=== PATIENT | female | born 1980 | race Caucasian/White ===

== ENCOUNTER 2017-07-17 11:20 | Inpatient (IN) | payer OTHER ==
[~2017-07-17] VITALS: Ht 175.3 cm; Wt 104.3 kg
[2017-07-17 11:26] VITALS: BP 128/69
[2017-07-17] MEDS ORDERED: PEPCID AC10 MG PO (11:54)
[2017-07-17] MEDS ORDERED: ZOLPIDEM TARTRA10 MG ORAL (11:54)
[2017-07-17] MEDS ORDERED: XANAX0.5 MG ORAL (11:54)
[2017-07-17] MEDS ORDERED: XANAX0.25 MG ORAL (11:54)
[2017-07-17] MEDS ORDERED: METOPROLOL TART50 M1 ORAL (11:54)
[2017-07-17] MEDS ORDERED: FLUOXETINE HCL20 MG ORAL (11:54)
[2017-07-17] MEDS ORDERED: RISPERDAL0.5 MG ORAL (11:54)
[2017-07-17] MEDS ORDERED: PREDNISONE20 MG ORAL (11:54)
[2017-07-17] MEDS ORDERED: BUPROPION XL150 MG ORAL (11:54)
[2017-07-17 12:20] LABS: BASOPHILS % (AUTO) 0.7 % (0.0-2.0); EOSINOPHILS % (AUTO) 0.4 % (0.0-3.0); HEMATOCRIT 36.7 % (37.0-47.0); LYMPHOCYTES % (AUTO) 26.1 % (20.0-45.0); MEAN CORPUSCULAR VOLUME 82 FL (80-99); MONOCYTES % (AUTO) 6.4 % (1.0-10.0); NEUTROPHILS % (AUTO) 66.5 % (45.0-75.0); PLATELET COUNT 304 K/UL (150-450); RED BLOOD COUNT 4.48 M/UL (4.20-5.40); RED CELL DISTRIBUTION WIDTH 13.9 % (11.6-14.8); WHITE BLOOD COUNT 12.1 K/UL (4.8-10.8)
--- NOTE | 2017-07-17 12:24 | Emergency Room Report ---
History of Present Illness General Chief Complaint: General Complaint Source: Patient Present Illness HPI 37-year-old female presenting with bilateral swelling of underarms. States it is in the way since age 17. Has had numerous flares. Here to have surgery for hidradenitis Allergies: Coded Allergies: LEVOFLOXACIN (Verified Allergy, Unknown, 07/17/17) Patient History Past Medical History: see triage record Past Surgical History: none Pertinent Family History: none Last Menstrual Period: Three weeks ago Now: No Reviewed Nursing Documentation: PMH: Agreed, PSxH: Agreed Nursing Documentation-PMH Hx Hypertension: Yes Review of Systems All Other Systems: negative except mentioned in HPI Physical Exam Vital Signs Date Time Temp Pulse Resp B/P (MAP) Pulse Ox O2 Delivery O2 Flow Rate FiO2 07/17/17 11:26 98.1 65 16 128/69 99 Room Air 98.1 Sp02 EP Interpretation: reviewed, normal General Appearance: normal inspection, well appearing, no apparent distress, alert, GCS 15, non-toxic Head: normocephalic, atraumatic Eyes: bilateral eye normal inspection, bilateral eye PERRL, bilateral eye EOMI ENT: normal ENT inspection, normal pharynx, normal voice, moist mucus membranes Neck: normal inspection, full range of motion, supple Respiratory: normal inspection, lungs clear, normal breath sounds, no respiratory distress, no retraction, no wheezing, speaking full sentences, chest symmetrical Cardiovascular #1: normal inspection, regular rate, rhythm, no edema, normal capillary refill Cardiovascular #2: 2+ radial (R), 2+ radial (L) Gastrointestinal: normal inspection, non tender, soft, non-distended, no guarding Musculoskeletal: other - underarms with numerous small lumps, TTP, mild erythema. no drainage Neurologic: normal inspection, alert, oriented x3, responsive, motor strength/ tone normal, sensory intact, normal gait, speech normal Psychiatric: normal inspection, judgement/insight normal, memory normal Skin: normal inspection, normal color, no rash, warm/dry, well hydrated, normal turgor Medical Decision Making Diagnostic Impression: Primary Impression: Hidradenitis suppurativa ER Course 37-year-old female with hidradenitis DDX: Hidradenitis suppurativa Plan: Obtain labs, ua, EKG ER course: Patient stable, offered pain medications but refusing at this time Disposition: Patient is to be admitted to [facility] D/W hospitalist Dr Garcia covering for Dr Charles (Dr Masterson will be surgeon) Please note that this Emergency Department Report was dictated using [employer] database administrator technology software, occasionally this can lead to erroneous entry secondary to interpretation by the dictation equipment. EKG Diagnostic Results EP Interpretation: Yes Rate: normal Rhythm: NSR ST Segments: No acute changes ASA given to patient: No Laboratory Tests Test 07/17/17 11:59 White Blood Count 12.1 K/UL (4.8-10.8) H Red Blood Count 4.48 M/UL (4.20-5.40) Hemoglobin 12.0 G/DL (12.0-16.0) Hematocrit 36.7 % (37.0-47.0) L Mean Corpuscular Volume 82 FL (80-99) Mean Corpuscular Hemoglobin 26.7 PG (27.0-31.0) L Mean Corpuscular Hemoglobin Concent 32.6 G/DL (32.0-36.0) Red Cell Distribution Width 13.9 % (11.6-14.8) Platelet Count 304 K/UL (150-450) Mean Platelet Volume 6.1 FL (6.5-10.1) L Neutrophils (%) (Auto) 66.5 % (45.0-75.0) Lymphocytes (%) (Auto) 26.1 % (20.0-45.0) Monocytes (%) (Auto) 6.4 % (1.0-10.0) Eosinophils (%) (Auto) 0.4 % (0.0-3.0) Basophils (%) (Auto) 0.7 % (0.0-2.0) Prothrombin Time 10.1 SEC (9.30-11.50) Prothrombin Time INR 1.0 (0.9-1.1) PTT 26 SEC (23-33) Urine Color Pale yellow Urine Appearance Turbid Urine pH 6 (4.5-8.0) Urine Specific Chandler 1.015 (1.005-1.035) Urine Protein Negative (NEGATIVE) Urine Glucose (UA) Negative (NEGATIVE) Urine Ketones Negative (NEGATIVE) Urine Occult Blood Negative (NEGATIVE) Urine Nitrite Negative (NEGATIVE) Urine Bilirubin Negative (NEGATIVE) Urine Urobilinogen Normal MG/DL (0.0-1.0) Urine Leukocyte Esterase 2+ (NEGATIVE) H Urine RBC 2-4 /HPF (0 - 2) H Urine WBC 5-10 /HPF (0 - 2) H Urine Squamous Epithelial Cells Many /LPF (NONE/OCC) H Urine Bacteria Few /HPF (NONE) Urine HCG, Qualitative Negative Sodium Level 139 MMOL/L (136-145) Potassium Level 3.5 MMOL/L (3.5-5.1) Chloride Level 103 MMOL/L (98-107) Carbon Dioxide Level 29 MMOL/L (21-32) Anion Gap 7 mmol/L (5-15) Blood Urea Nitrogen 13 mg/dL (7-18) Creatinine 1.0 MG/DL (0.55-1.30) Estimate Glomerular Filtration Rate > 60 mL/min (>60) Glucose Level 79 MG/DL (74-106) Calcium Level 8.7 MG/DL (8.5-10.1) Total Bilirubin 0.3 MG/DL (0.2-1.0) Aspartate Amino Transferase (AST) 11 U/L (15-37) L Alanine Aminotransferase (ALT) 15 U/L (12-78) Alkaline Phosphatase 54 U/L (46-116) Total Protein 7.4 G/DL (6.4-8.2) Albumin 3.5 G/DL (3.4-5.0) Globulin 3.9 g/dL Albumin/Globulin Ratio 0.9 (1.0-2.7) L Last Vital Signs Date Time Temp Pulse Resp B/P (MAP) Pulse Ox O2 Delivery O2 Flow Rate FiO2 07/17/17 11:26 98.6 65 16 128/69 99 Room Air 98.6 Disposition: ADMITTED INPATIENT Condition: Serious Referrals: BARB MASTERSON (PCP) Debra Boyer M.D. Jul 17, 2017 12:24
[2017-07-17 12:30] LABS: ANION GAP 7 mmol/L (5-15); BLOOD UREA NITROGEN 13 mg/dL (7-18); CALCIUM 8.7 MG/DL (8.5-10.1); CARBON DIOXIDE 29 MMOL/L (21-32); CHLORIDE 103 MMOL/L (98-107); POTASSIUM 3.5 MMOL/L (3.5-5.1); SODIUM 139 MMOL/L (136-145)
[2017-07-17] MEDS ORDERED: Mylanta II UD 30ml ORAL PRN (12:30)
[2017-07-17] MEDS ORDERED: Morphine Sulfate 4mg/ml Inj IVP PRN ×2 (12:30)
[2017-07-17] MEDS ORDERED: Acetaminophen 650 MG SUPP RECTAL PRN ×2 (12:30)
[2017-07-17] MEDS ORDERED: Miralax 17gm pkt ORAL PRN (12:30)
[2017-07-17] MEDS ORDERED: Zolpidem 5mg tab ORAL PRN ×2 (12:30→16:45)
[2017-07-17 12:33] LABS: APPEARANCE,URINE TURBID; BILIRUBIN, URINE NEGATIVE (NEGATIVE); COLOR,URINE PALE YELLOW; GLUCOSE, URINE (UA) NEGATIVE (NEGATIVE); KETONES,URINE NEGATIVE (NEGATIVE); LEUKOCYTE ESTERASE ,URINE 2+ (NEGATIVE); NITRITE,URINE NEGATIVE (NEGATIVE); PH,URINE 6 (4.5-8.0); PROTEIN,URINE NEGATIVE (NEGATIVE); UROBILINOGEN,URINE NORMAL MG/DL (0.0-1.0)
[2017-07-17 12:34] LABS: ALANINE AMINOTRANSFERASE 15 U/L (12-78); ALBUMIN 3.5 G/DL (3.4-5.0); ALBUMIN/GLOBULIN RATIO 0.9 (1.0-2.7); ALKALINE PHOSPHATASE 54 U/L (46-116); ASPARTATE AMINO TRANSFERASE 11 U/L (15-37); BILIRUBIN,TOTAL 0.3 MG/DL (0.2-1.0)
[2017-07-17 16:00] VITALS: BP 118/63
--- NOTE | 2017-07-17 16:41 | History and Physical ---
History of Present Illness General Date patient seen: Jul 17, 2017 Time patient seen: 16:41 Reason for Hospitalization: abscesses Present Illness HPI 37y/o female with pmh of hidradenitis suppurative, HTN, depression, anxiety who presents with b/l axillary swelling/pain/redness/drainage. Pt states worsening symptoms for the past few weeks. She notes purulent drainage L>R axilla. C/o subjective fevers/chills. Denies n/v, d/c, chest pain, SOB, abd pain. Pt states has tried PO antibiotics with much improvement. At baseline pt able to ambulate severe blocks and climb at least a flight of stairs w/o symptoms. Allergies: Coded Allergies: LEVOFLOXACIN (Verified Allergy, Unknown, 07/17/17) Medication History Scheduled Alprazolam* (Xanax*), 0.25 MG ORAL THREE TIMES A DAY, (Reported) Bupropion Xl* (Bupropion Xl*), 300 MG ORAL Q24H, (Reported) Fluoxetine Hcl* (Fluoxetine Hcl*), 20 MG ORAL DAILY, (Reported) Metoprolol Tartrate* (Metoprolol Tartrate*), 50 MG ORAL EVERY 12 HOURS, ( Reported) Prednisone* (Prednisone*), 20 MG ORAL DAILY, (Reported) Risperidone* (Risperdal*), 0.5 MG ORAL BID, (Reported) Scheduled PRN Alprazolam* (Xanax*), 0.5 MG ORAL TID PRN for PRN Agitation/Anxiety, (Reported) Zolpidem Tartrate* (Zolpidem Tartrate*), 10 MG ORAL BEDTIME PRN for Insomnia, ( Reported) Miscellaneous Medications Famotidine (Pepcid Ac), 10 MG PO, (Reported) Patient History History Provided By: Patient, Medical Record, PMD Healthcare decision maker Resuscitation status Advanced Directive on File Past Medical/Surgical History Past Medical/Surgical History: (1) HTN (hypertension) (2) Depression (3) Anxiety Social History Social History: (1) Lives with family (2) Denies tobacco, alcohol. Occasional marijuana use Review of Systems Constitutional: Reports: fever, malaise, weakness Eye: Reports: no symptoms ENT: Reports: no symptoms Respiratory: Reports: no symptoms Cardiovascular: Reports: no symptoms Gastrointestinal: Reports: no symptoms Genitourinary: Reports: no symptoms Musculoskeletal: Reports: no symptoms Skin: Reports: lesions Neurological: Reports: no symptoms Endocrine: Reports: no symptoms Hematologic/Lymphatic: Reports: no symptoms Physical Exam Physical Exam Narrative General: alert, cooperative, no distress, appears stated age Head: normocephalic, without obvious abnormality, atraumatic Eyes: conjunctivae/corneas clear. PERRL, EOM's intact Throat: lips, mucosa, and tongue normal. MMM Neck: supple, symmetrical, trachea midline, and no JVD Lungs: clear to auscultation bilaterally Heart: regular rate and rhythm, S1, S2 normal, no murmur, click, rub or gallop Abdomen: soft, non-tender, non-distended, bowel sounds normal; no masses or organomegaly Extremities: extremities normal, atraumatic, no cyanosis or edema Pulses: 2+ and symmetric Skin: skin color, texture, turgor normal; b/l axilla w/ erythema/edema/warm/ fluctuance, no sig purulent drainage noted Neurologic: grossly normal, no focal deficits Last 24 Hour Vital Signs Date Time Temp Pulse Resp B/P (MAP) Pulse Ox O2 Delivery O2 Flow Rate FiO2 07/17/17 14:15 97.5 07/17/17 12:55 97.5 61 18 111/75 100 Room Air 07/17/17 11:26 98.6 65 16 128/69 99 Room Air 98.6 07/17/17 11:26 98.1 65 16 128/69 99 Room Air 98.1 Laboratory Tests Test 07/17/17 11:59 White Blood Count 12.1 K/UL (4.8-10.8) H Red Blood Count 4.48 M/UL (4.20-5.40) Hemoglobin 12.0 G/DL (12.0-16.0) Hematocrit 36.7 % (37.0-47.0) L Mean Corpuscular Volume 82 FL (80-99) Mean Corpuscular Hemoglobin 26.7 PG (27.0-31.0) L Mean Corpuscular Hemoglobin Concent 32.6 G/DL (32.0-36.0) Red Cell Distribution Width 13.9 % (11.6-14.8) Platelet Count 304 K/UL (150-450) Mean Platelet Volume 6.1 FL (6.5-10.1) L Neutrophils (%) (Auto) 66.5 % (45.0-75.0) Lymphocytes (%) (Auto) 26.1 % (20.0-45.0) Monocytes (%) (Auto) 6.4 % (1.0-10.0) Eosinophils (%) (Auto) 0.4 % (0.0-3.0) Basophils (%) (Auto) 0.7 % (0.0-2.0) Prothrombin Time 10.1 SEC (9.30-11.50) Prothromb Time International Ratio 1.0 (0.9-1.1) Activated Partial Thromboplast Time 26 SEC (23-33) Urine Color Pale yellow Urine Appearance Turbid Urine pH 6 (4.5-8.0) Urine Specific Pierre 1.015 (1.005-1.035) Urine Protein Negative (NEGATIVE) Urine Glucose (UA) Negative (NEGATIVE) Urine Ketones Negative (NEGATIVE) Urine Occult Blood Negative (NEGATIVE) Urine Nitrite Negative (NEGATIVE) Urine Bilirubin Negative (NEGATIVE) Urine Urobilinogen Normal MG/DL (0.0-1.0) Urine Leukocyte Esterase 2+ (NEGATIVE) H Urine RBC 2-4 /HPF (0 - 2) H Urine WBC 5-10 /HPF (0 - 2) H Urine Squamous Epithelial Cells Many /LPF (NONE/OCC) H Urine Bacteria Few /HPF (NONE) Urine HCG, Qualitative Negative Sodium Level 139 MMOL/L (136-145) Potassium Level 3.5 MMOL/L (3.5-5.1) Chloride Level 103 MMOL/L (98-107) Carbon Dioxide Level 29 MMOL/L (21-32) Anion Gap 7 mmol/L (5-15) Blood Urea Nitrogen 13 mg/dL (7-18) Creatinine 1.0 MG/DL (0.55-1.30) Estimat Glomerular Filtration Rate > 60 mL/min (>60) Glucose Level 79 MG/DL (74-106) Calcium Level 8.7 MG/DL (8.5-10.1) Total Bilirubin 0.3 MG/DL (0.2-1.0) Aspartate Amino Transf (AST/SGOT) 11 U/L (15-37) L Alanine Aminotransferase (ALT/SGPT) 15 U/L (12-78) Alkaline Phosphatase 54 U/L (46-116) Total Protein 7.4 G/DL (6.4-8.2) Albumin 3.5 G/DL (3.4-5.0) Globulin 3.9 g/dL Albumin/Globulin Ratio 0.9 (1.0-2.7) L Height (Feet): 5 Height (Inches): 9.00 Weight (Pounds): 230 Medications Current Medications Medications (Trade) Dose Ordered Sig/Mariaelena Route PRN Reason Start Time Stop Time Status Last Admin Dose Admin Acetaminophen (Tylenol) 650 mg Q4H PRN ORAL Mild Pain (Scale 1-3)/FEVER 07/17/17 12:30 08/16/17 12:29 Acetaminophen (Tylenol) 650 mg Q4H PRN RECTAL Mild Pain (Scale 1-3)/FEVER 07/17/17 12:30 08/16/17 12:29 Al Hydroxide/Mg Hydroxide (Mylanta II) 30 ml Q6H PRN ORAL dyspepsia 07/17/17 12:30 08/16/17 12:29 Bisacodyl (Dulcolax) 10 mg HSPRN PRN RECTAL Constipation 07/17/17 12:30 08/16/17 12:29 Dextrose (Dextrose 50%) STAT PRN IV Hypoglycemia 07/17/17 12:30 08/16/17 12:29 Dextrose/Sodium Chloride 1,000 ml @ 75 mls/hr [id number] IV 07/18/17 06:00 08/17/17 05:59 Diphenhydramine HCl (Benadryl) 25 mg Q6H PRN ORAL Itching/Pruritis 07/17/17 12:30 08/16/17 12:29 Docusate Sodium (Colace) 100 mg EVERY 12 HOURS ORAL 07/17/17 21:00 08/16/17 20:59 Morphine Sulfate (Morphine Sulfate) 2 mg Q4H PRN IVP Moderate Pain (Pain Scale 4-6) 07/17/17 12:30 07/24/17 12:29 07/17/17 14:15 Morphine Sulfate (Morphine Sulfate) 4 mg Q4H PRN IVP Severe Pain (Pain Scale 7-10) 07/17/17 12:30 07/24/17 12:29 Ondansetron HCl (Zofran) 4 mg Q6H PRN IVP Nausea & Vomiting 2/13/18 12:30 08/16/17 12:29 Polyethylene Glycol (Miralax) 17 gm HSPRN PRN ORAL Constipation 07/17/17 12:30 08/16/17 12:29 Zolpidem Tartrate (Ambien) 5 mg HSPRN PRN ORAL Insomnia 07/17/17 12:30 07/24/17 12:29 Assessment/Plan Problem List: (1) Abscesses of both axillae ICD Codes: L02.411 - Cutaneous abscess of right axilla; L02.412 - Cutaneous abscess of left axilla SNOMED: 58421174 (2) Hidradenitis suppurativa ICD Codes: L73.2 - Hidradenitis suppurativa SNOMED: 08192153 (3) HTN (hypertension) ICD Codes: I10 - Essential (primary) hypertension SNOMED: 06168274 (4) Depression ICD Codes: F32.9 - Major depressive disorder, single episode, unspecified SNOMED: 55172863 (5) Anxiety ICD Codes: F41.9 - Anxiety disorder, unspecified SNOMED: 66501993 Status: stable Assessment/Plan Admit in Plastic surgery consulted Check blood cultures x 2 Empiric IV ancef mIVFs Pain control, bowel regimen Supportive care Cont home meds including MTP, welbutrin, prozac, risperidone, xanax PRN, prilosec If patient is required to have surgery, based on the patient's medical history, and other available ancillary data, the patient is a LOW risk for an INTERMEDIATE risk procedure. Per the most recent ACC/AHA guidelines, the patient does not need any further cardiopulmonary testing prior to the procedure and there do not appear to be any clear medical contraindications to proceeding with the proposed procedure. METs>4 FULL CODE D/w pt, RN, SW/CM, surgery regarding mgmt and dispo Jaciel Winter M.D. Jul 17, 2017 16:41
[2017-07-17] MEDS ORDERED: ceFAZolin 1gm/50ml Premix 50 ML IV SCH (16:45)
[2017-07-17] MEDS ORDERED: ALPRAZolam 0.5mg tab ORAL PRN (16:45)
[2017-07-17] MEDS: ceFAZolin sod 1 GM in NS 55 ML IVPB SCH (18:24)
[2017-07-17 20:14] VITALS: BP 127/67
[2017-07-17] MEDS: Docusate 100mg cap ORAL SCH (21:03)
[2017-07-17] MEDS: Metoprolol Tartrate 50mg tab ORAL SCH (21:03)
[2017-07-18] VITALS (15 sets, daily range): BP systolic 95–152; BP diastolic 48–76
[2017-07-18] MEDS: ceFAZolin sod 1 GM in NS 55 ML IVPB SCH ×3 (02:00→17:42)
[2017-07-18] MEDS: D5 1/2NS 1,000 ML IV SCH ×2 (06:05→20:00)
[2017-07-18] MEDS ORDERED: TransDerm Scop 1mg/72HR Patch TDERMAL ONE (07:49)
--- NOTE | 2017-07-18 08:20 | Anethesia Preoperative Eval ---
Anesthesia Pre-op PMH/ROS General Date of Evaluation: Jul 18, 2017 Time of Evaluation: 08:17 Anesthesiologist: Tatiana ASA Score: ASA 2 Mallampati Score Class I : Soft palate, uvula, fauces, pillars visible Class II: Soft palate, uvula, fauces visible Class III: Soft palate, base of uvula visible Class IV: Only hard plate visible Mallampati Classification: Class II Surgeon: Tavares Diagnosis: Bilateral axillary hydradenitis Surgical Procedure: Excision of bilateral axillary HS Anesthesia History: none Family History: no anesthesia problems Allergies: Coded Allergies: LEVOFLOXACIN (Verified Allergy, Unknown, 07/17/17) Medications: see eMAR Past Medical History Cardiovascular: Reports: HTN - stable on meds, Denies: CAD, VA, valve dz, arrhythmia, other Pulmonary: Denies: asthma, COPD, GWEN, other Gastrointestinal/Genitourinary: Reports: GERD - mild, Denies: CRI, ESRD, other Neurologic/Psychiatric: Reports: depression/anxiety, Denies: dementia, CVA, TIA, other Endocrine: Denies: DM, hypothyroidism, steroids, other HEENT: Denies: cataract (L), cataract (R), glaucoma, CHILKAT (L), CHILKAT (R), other Hematology/Immune: Denies: anemia, DVT, bleeding disorder, other Musculoskeletal/Integumentary: Denies: OA, RA, DJD, DDD, edema, other Other: obesity PMH Narrative: as above PSxH Narrative: excision of pilonidal cyst Anesthesia Pre-op Phys. Exam Physician Exam Last Vital Signs Date Time Temp Pulse Resp B/P (MAP) Pulse Ox O2 Delivery O2 Flow Rate FiO2 07/18/17 04:05 Room Air 07/18/17 04:04 97.7 56 17 98/53 97 Constitutional: NAD Neurologic: CN 2-12 intact Cardiovascular: RRR, no M/R/G Respiratory: CTA Gastrointestinal: S/NT/ND Airway Exam Mallampati Score: Class II MO: full Neck: flexible ROM: full Teeth: intact Dentures: no upper, no lower Anesthesia Pre-op A/P Labs Hematology Test 07/17/17 11:59 White Blood Count 12.1 K/UL (4.8-10.8) H Red Blood Count 4.48 M/UL (4.20-5.40) Hemoglobin 12.0 G/DL (12.0-16.0) Hematocrit 36.7 % (37.0-47.0) L Mean Corpuscular Volume 82 FL (80-99) Mean Corpuscular Hemoglobin 26.7 PG (27.0-31.0) L Mean Corpuscular Hemoglobin Concent 32.6 G/DL (32.0-36.0) Red Cell Distribution Width 13.9 % (11.6-14.8) Platelet Count 304 K/UL (150-450) Mean Platelet Volume 6.1 FL (6.5-10.1) L Neutrophils (%) (Auto) 66.5 % (45.0-75.0) Lymphocytes (%) (Auto) 26.1 % (20.0-45.0) Monocytes (%) (Auto) 6.4 % (1.0-10.0) Eosinophils (%) (Auto) 0.4 % (0.0-3.0) Basophils (%) (Auto) 0.7 % (0.0-2.0) Coagulation Test 07/17/17 11:59 Prothrombin Time 10.1 SEC (9.30-11.50) Prothromb Time International Ratio 1.0 (0.9-1.1) Activated Partial Thromboplast Time 26 SEC (23-33) Chemistry Test 07/17/17 11:59 Sodium Level 139 MMOL/L (136-145) Potassium Level 3.5 MMOL/L (3.5-5.1) Chloride Level 103 MMOL/L (98-107) Carbon Dioxide Level 29 MMOL/L (21-32) Anion Gap 7 mmol/L (5-15) Blood Urea Nitrogen 13 mg/dL (7-18) Creatinine 1.0 MG/DL (0.55-1.30) Estimat Glomerular Filtration Rate > 60 mL/min (>60) Glucose Level 79 MG/DL (74-106) Calcium Level 8.7 MG/DL (8.5-10.1) Total Bilirubin 0.3 MG/DL (0.2-1.0) Aspartate Amino Transf (AST/SGOT) 11 U/L (15-37) L Alanine Aminotransferase (ALT/SGPT) 15 U/L (12-78) Alkaline Phosphatase 54 U/L (46-116) Total Protein 7.4 G/DL (6.4-8.2) Albumin 3.5 G/DL (3.4-5.0) Globulin 3.9 g/dL Albumin/Globulin Ratio 0.9 (1.0-2.7) L Urine Test Test 07/17/17 11:59 Urine HCG, Qualitative Negative Risk Assessment & Plan Assessment: ASA 2 Plan: GA with ETT PONV prevention Status Change Before Surgery: No Pre-Antibiotics Drug: as scheduled ADALBERTO THOMAS M.D. Jul 18, 2017 08:20
[2017-07-18] MEDS: Docusate 100mg cap ORAL SCH ×2 (08:35→20:46)
[2017-07-18] MEDS: Metoprolol Tartrate 50mg tab ORAL SCH ×2 (08:36→20:51)
[2017-07-18] MEDS: BuPROPion XL 150mg tab ORAL SCH (08:36)
[2017-07-18] MEDS ORDERED: NeoSporin Gu Irrig 1ml Amp IRRIG ONE (08:57)
[2017-07-18] MEDS ORDERED: Lidocaine 1% 10mg/ml/EPI 0.01mg/ml 50ml INJ ONE (08:57)
[2017-07-18] MEDS ORDERED: Bacitracin 50000 Units Vial ONE (08:57)
--- NOTE | 2017-07-18 09:23 | Pre-Procedure Note/Attestation ---
Pre-Procedure Note/Attestation Complete Prior to Procedure Planned Procedure: bilateral Procedure Narrative: Bilateral axillary debridement and flap elevation Attestation I attest that I discussed the nature of the procedure; its benefits; risks and complications; and alternatives (and the risks and benefits of such alternatives ), prior to the procedure, with the patient (or the patient's legal patient relations representative). I attest that, if there was a reasonable possibility of needing a blood transfusion, the patient (or the patient's legal patient relations representative) was given the [facility] standardized written summary, pursuant to the Carlos Mikki Blood Safety Act ([place] Health and Safety Code # 1645, as amended). I attest that I re-evaluated the patient just prior to the surgery and that there has been no change in the patient's H&P, except as documented below: BARB MASTERSON Jul 18, 2017 09:22
[2017-07-18] MEDS ORDERED: NS Irrig 1000ml ONE (09:30)
[2017-07-18] MEDS ORDERED: LR 1000ml ONE (09:30)
[2017-07-18] MEDS ORDERED: Succinylcholine 20mg/ml 10ml vial ONE (09:30)
[2017-07-18] MEDS ORDERED: Ketorolac 30mg Inj ONE (09:30)
[2017-07-18] MEDS ORDERED: Zemuron 50mg/5ml Inj IV ONE (09:30)
[2017-07-18] MEDS ORDERED: Rate Change PCA 1 Each MISC PRN (09:30)
[2017-07-18] MEDS ORDERED: Neostigmine 1mg/ml 10ml Inj ONE (09:30)
[2017-07-18] MEDS ORDERED: Midazolam 2mg/2ml Inj ONE (09:30)
[2017-07-18] MEDS ORDERED: Morphine Sulfate 10mg/ml Inj ONE (09:30)
[2017-07-18] MEDS ORDERED: Glycopyrrolate 0.2mg/ml 1ml Vial ONE (09:30)
[2017-07-18] MEDS ORDERED: Propofol 200mg/20ml IV ONE (09:30)
[2017-07-18] MEDS ORDERED: fentaNYL 100 mcg/2 mL IV ONE (09:30)
[2017-07-18] MEDS ORDERED: Sterile Water Irrig 1000ml IRRIG ONE (09:30)
[2017-07-18] MEDS ORDERED: PCA Education Pamphlet MISC ONE (09:30)
[2017-07-18] MEDS ORDERED: LR 1000ml 1,000 ML IVLG SCH (10:18)
[2017-07-18] MEDS ORDERED: Ketorolac 30mg Inj IV PRN (10:30)
[2017-07-18] MEDS ORDERED: DiphenhydrAMINE 50mg/ml Inj IVP PRN (10:30)
[2017-07-18] MEDS ORDERED: Hydromorphone 0.5mg/0.5ml inj IVP PRN (10:30)
[2017-07-18] MEDS ORDERED: Meperidine 50mg/ml Inj(FOR RIGORS ONLY) IV PRN ×2 (10:30)
[2017-07-18] MEDS ORDERED: Midazolam 2mg/2ml Inj IVP PRN (10:30)
--- NOTE | 2017-07-18 10:53 | Operative Note - PDOC ---
Operative Note Operative Note Procedure: Bilateral axillary debridement and flap elevation Surgeon: Tavares Terrazzo Tile Setter: Dulce Anesthesia: general Specimen: yes Complications: none Condition: stable Estimated Blood Loss: minimal Drains: none Implant(s) used?: No BARB MASTERSON Jul 18, 2017 10:53
[2017-07-18] MEDS ORDERED: Surgicel 4in x 8in TOPIC ONE (11:04)
--- NOTE | 2017-07-18 11:13 | Immediate Post-Op Evaluation ---
Immediate Post-Op Evalulation Immediate Post-Op Evalulation Procedure: Excision of bilateral axillary hydradenitis Date of Evaluation: Jul 18, 2017 Time of Evaluation: 11:12 IV Fluids: 800 Blood Products: none Estimated Blood Loss: 50 Urinary Output: none Blood Pressure Systolic: 144 Blood Pressure Diastolic: 72 Pulse Rate: 54 Respiratory Rate: 20 O2 Sat by Pulse Oximetry: 99 Temperature (Fahrenheit): 97.6 Pain Score (1-10): 2 Nausea: No Vomiting: No Complications none Patient Status: awake, patent, extubated Hydration Status: adequate ADALBERTO THOMAS M.D. Jul 18, 2017 11:13
[2017-07-18] MEDS: PCA HYDROmorphone 1mg/ml 30 ML IV PRN (11:16)
--- NOTE | 2017-07-18 16:21 | Cardiology Report ---
APPROVED REPORT EKG Measurement Heart [id number] CA [id number]-10 [id number] Sinus bradycardia Otherwise normal ECG
--- NOTE | 2017-07-18 17:00 | Consultation ---
DATE OF CONSULTATION: 07/18/2017 HISTORY OF PRESENT ILLNESS: This is a 37-year-old female, admitted to the emergency room for bilateral axillary pain with right-sided pain significantly worse with associated fever and drainage. She had been seen recently in an outside emergency room for fever, was given antibiotics and she continued to have drainage and pain and she re-presented with these symptoms in the emergency room. She was admitted by the medical team and started on IV antibiotics. PAST MEDICAL HISTORY: Significant for hidradenitis suppurativa. PAST SURGICAL HISTORY: None. MEDICATIONS: Recent use of antibiotics. ALLERGIES: Levofloxacin. PHYSICAL EXAMINATION: GENERAL: The patient is alert and oriented. HEART: Regular rate and rhythm. ABDOMEN: Soft, nontender, and nondistended. EXTREMITIES: Examination of bilateral axilla reveals evidence of a grade II/III hidradenitis suppurativa disease in the right axilla with an active abscess and active drainage and mild cellulitis as well as evidence of grade II/grade I hidradenitis in her left axilla. Both sides are tender to palpation. LABORATORY AND DIAGNOSTIC DATA: White blood cell count of 12.1. ASSESSMENT AND PLAN: This is a 37-year-old female admitted with active flare of hidradenitis with leukocytosis and recent subjective fevers. She will require intravenous antibiotics with a staged treatment of radical excision and debridement of the tissue with staged reconstruction. She understands the plan and agrees to proceed. Marsha Chapin M.D. DR: DARWIN JOB#: [id number] CC:
--- NOTE | 2017-07-18 17:54 | General Progress Note ---
Assessment/Plan Problem List: (1) Abscesses of both axillae ICD Codes: L02.411 - Cutaneous abscess of right axilla; L02.412 - Cutaneous abscess of left axilla SNOMED: 74938649 (2) Hidradenitis suppurativa ICD Codes: L73.2 - Hidradenitis suppurativa SNOMED: 96930563 (3) HTN (hypertension) ICD Codes: I10 - Essential (primary) hypertension SNOMED: 16312388 (4) Depression ICD Codes: F32.9 - Major depressive disorder, single episode, unspecified SNOMED: 95618866 (5) Anxiety ICD Codes: F41.9 - Anxiety disorder, unspecified SNOMED: 50853278 Status: stable Assessment/Plan Appreciate plastic surgery rec's s/p bilateral axillary debridement and flap elevation on 07/18/17 Cont empiric IV ancef F/u blood cultures Wound care [facility] Post operative recommendations include: - encourage mobilization/ambulation - encourage incentive spirometry to optimize pulmonary hygiene - DVT/GI prophylaxis as appropriate - ctm CBC and hemodynamics - ctm electrolytes, adjust/replete prn - PT/OT/ST, if indicated - pain control, supportive care, bowel regimen FULL CODE 32min of extra time was spent on this encounter in addition to normal encounter time for care/coordination and counseling. D/w patient/family, RN, SW/CM, surgery regarding mgmt and dispo. D/w surgery re periop and postop mgmt Subjective Date patient seen: Jul 18, 2017 Time patient seen: 17:54 ROS Limited/Unobtainable: No Constitutional: Reports: no symptoms HEENT: Reports: blurred vision Cardiovascular: Reports: no symptoms Respiratory: Reports: no symptoms Gastrointestinal/Abdominal: Reports: no symptoms Genitourinary: Reports: no symptoms Neurologic/Psychiatric: Reports: no symptoms Endocrine: Reports: no symptoms Hematologic/Lymphatic: Reports: no symptoms Allergies: Coded Allergies: LEVOFLOXACIN (Verified Allergy, Unknown, 07/17/17) Subjective No acute o/n events s/p bilateral axillary debridement and flap elevation POD#0 Pt still feeling drowsy w/ some blurred vision after OR. Denies f/c, n/v, d/c, chest pain, SOB, abd pain Objective Last 24 Hour Vital Signs Date Time Temp Pulse Resp B/P (MAP) Pulse Ox O2 Delivery O2 Flow Rate FiO2 07/18/17 16:24 98.3 60 19 98 Room Air 60 07/18/17 16:00 98.3 60 18 126/61 99 Room Air 07/18/17 16:00 18 07/18/17 13:15 18 07/18/17 12:45 17 07/18/17 12:15 98.5 58 18 127/65 100 Nasal Cannula 3.0 07/18/17 12:15 16 07/18/17 12:05 98.0 58 17 142/53 100 Nasal Cannula 3.0 07/18/17 11:52 98.0 07/18/17 11:50 56 17 129/69 100 Nasal Cannula 3.0 07/18/17 11:46 98.0 07/18/17 11:45 15 07/18/17 11:40 51 16 133/55 100 Nasal Cannula 3.0 07/18/17 11:30 52 15 138/64 100 Nasal Cannula 3.0 07/18/17 11:30 19 07/18/17 11:22 97.9 07/18/17 11:22 57 19 140/67 100 Nasal Cannula 3.0 07/18/17 11:16 97.9 07/18/17 11:16 16 07/18/17 11:15 53 13 129/63 100 Simple Mask 6.0 07/18/17 11:13 207.7 54 20 99 07/18/17 11:10 56 18 152/61 100 Simple Mask 6.0 07/18/17 11:05 97.9 59 16 141/61 100 Simple Mask 6.0 07/18/17 10:03 97.7 57 20 123/76 99 Room Air 07/18/17 08:36 61 125/76 07/18/17 08:26 97.7 57 20 123/76 99 07/18/17 04:05 Room Air 07/18/17 04:04 97.7 56 17 98/53 97 07/18/17 00:09 Room Air 07/18/17 00:08 97.7 63 20 121/65 97 07/17/17 21:03 70 127/67 07/17/17 20:15 Room Air 07/17/17 20:14 97.8 70 20 127/67 97 Intake and Output 07/17/17 07/18/17 19:00 07:00 Intake Total 405 ml 55 ml Balance 405 ml 55 ml Intake Oral 350 ml IV Total 55 ml 55 ml # Voids 1 2 Height (Feet): 5 Height (Inches): 9.00 Weight (Pounds): 230 Objective General: alert, cooperative, no distress, appears stated age Head: normocephalic, without obvious abnormality, atraumatic Eyes: conjunctivae/corneas clear. PERRL, EOM's intact Throat: lips, mucosa, and tongue normal. MMM Neck: supple, symmetrical, trachea midline, and no JVD Lungs: clear to auscultation bilaterally Heart: regular rate and rhythm, S1, S2 normal, no murmur, click, rub or gallop Abdomen: soft, non-tender, non-distended, bowel sounds normal; no masses or organomegaly Extremities: extremities normal, atraumatic, no cyanosis or edema Pulses: 2+ and symmetric Skin: skin color, texture, turgor normal; dressings c/d/i Neurologic: grossly normal, no focal deficits Jaciel Winter M.D. Jul 18, 2017 17:54
--- NOTE | 2017-07-18 18:45 | Operative Note - Dictated ---
DATE OF OPERATION: 07/18/2017 PREOPERATIVE DIAGNOSIS: Bilateral axillary hidradenitis. POSTOPERATIVE DIAGNOSIS: Bilateral axillary hidradenitis. PROCEDURES: 1. Radical excision of left axillary hidradenitis. 2. Radical excision of right axillary hidradenitis. 3. Elevation of the thoracodorsal artery chest wall flap for staged closure of right axillary wound ( 14cm x 8cm). 4. Elevation of an anterior chest wall flap for staged closure of right axillary wound (15cm x 8cm) SURGEON: Marsha Chapin M.D. FLIGHT ENGINEER: Des Cardona M.D. ANESTHESIA: General. COMPLICATIONS: None. DRAINS: None. DISPOSITION: Stable to the recovery room. INDICATIONS FOR SURGERY: This is a 37-year-old female admitted for active hidradenitis with active abscesses and leukocytosis, started on IV antibiotics last night and upon evaluation by me, I felt that she was an appropriate candidate for excision of her disease with reconstruction in a staged fashion. She understood the risks and benefits of surgery and agreed to proceed. DETAILS OF THE OPERATION: The patient was brought to the operating room and laid in the supine position on the operating table. Her bilateral axilla were prepped and draped in a sterile and usual fashion. We first began by marking out the area of disease in both axilla. On the left axilla, we measured on the elliptical type of incision that measured 8 x 4 cm and on the right side we measured a more irregular type of incision that measured 12 x 15 cm. We injectable 1% lidocaine with epinephrine into the both wounds and after 5 minutes elapsed we began on the left side using a #10 blade to make the elliptical incision and we carried down our incision all way down to the level of the axillary fascia and radically excised the tissues. Once this was done, the defect that resulted was about 10 x 4 cm and was clearly not amenable to direct primary closure. As such we had to elevate the skin on both sides to allow for a tension-free closure. This was done in a superior and inferior fashion. We then turned our attention to the contralateral right axilla where a #10 blade was used to make the regular type of incision around the diseased tissue. Once this was done, the defect that resulted was approximately 18 x 14 centimeters and clearly not amenable to direct closure either with undermining of the skin. As such, a flap had to be elevated off of the lateral chest wall. A corresponding thoracodorsal artery flap based off of perforators of the thoracodorsal artery was designed, this U shaped flap was then elevated by making U shaped incision using a #15 blade. Dissection then carried down all the way down to the level of the latissimus dorsi muscle fascia and the flap was elevated along with the fascia and upon complete elevation the rotation flap could be easily placed into the defect and covered approximately 80% of the wound, however, we felt that it needed to be additional flap coverage as such and anterior chest wall flap based off of perforators of the thoracoacromial artery was also elevated above the pectoralis muscle fascia to allow for definitive closure of the wounds. The thoracodorsal artery flap dimensions measured 14 x 8 cm and the chest wall flap width was 15 cm x 8 cm and these two flaps together allowed for definitive coverage of the wound however given the fact that there was active pus and the patient had a leukocytosis I felt that it was inappropriate to perform definitive closure at this time. As such, the wounds will be left open with the flaps placed back at [place] donor sites and the patient will be brought back to the operating room after undergoing 48 hours of nursing wound care and at that time she will undergo definitive flap closure of the right wound and closure of the left axilla as well. The patient tolerated the procedure well. There were no complications. Marsha Chapin M.D. DR: Adela JOB#: [id number] CC: MABLE
[2017-07-18] MEDS: PCA shift volume MISC SCH (19:59)
[2017-07-18] MEDS: Heparin 5000 units/ml inj SUBQ SCH (20:50)
[2017-07-19] VITALS: BP 91/54
[2017-07-19] MEDS: D5 1/2NS 1,000 ML IV SCH ×3 (01:54→21:39)
[2017-07-19] MEDS: ceFAZolin sod 1 GM in NS 55 ML IVPB SCH ×3 (01:55→18:38)
[2017-07-19 04:00] VITALS: BP 105/57
[2017-07-19] MEDS: PCA shift volume MISC SCH ×2 (07:08→19:27)
--- NOTE | 2017-07-19 07:16 | 48 Hour Post Anesthesia Eval ---
Post Anesthesia Evaluation Procedure: Excision of bilateral axillary hydradenitis Date of Evaluation: Jul 19, 2017 Time of Evaluation: 07:15 Blood Pressure Systolic: 105 0: 57 Pulse Rate: 62 Respiratory Rate: 18 Temperature (Fahrenheit): 98.5 O2 Sat by Pulse Oximetry: 96 Airway: patent Nausea: No Vomiting: No Pain Intensity: 2 Hydration Status: adequate Cardiopulmonary Status: Stable Mental Status/LOC: patient returned to baseline Follow-up Care/Observations: 0 Post-Anesthesia Complications: 0 Follow-up care needed: N/A Cole Ortega MD Jul 19, 2017 07:16
[2017-07-19 08:00] VITALS: BP 96/73
--- NOTE | 2017-07-19 09:03 | General Progress Note ---
Progress Note Progress Note Pt seen and examined. POD# 1 and doing well. Dressings changed. To OR tomorrow for wound closure. BARB Daily MD Jul 19, 2017 09:03
[2017-07-19] MEDS: BuPROPion XL 150mg tab ORAL SCH (09:29)
[2017-07-19] MEDS: Docusate 100mg cap ORAL SCH ×2 (09:30→21:32)
[2017-07-19] MEDS: Metoprolol Tartrate 50mg tab ORAL SCH ×2 (09:30→21:32)
[2017-07-19] MEDS: Heparin 5000 units/ml inj SUBQ SCH ×2 (10:10→21:39)
--- NOTE | 2017-07-19 11:58 | 48 Hour Post Anesthesia Eval ---
Post Anesthesia Evaluation Procedure: Excision of bilateral axillary hydradenitis Date of Evaluation: Jul 19, 2017 Time of Evaluation: 11:56 Blood Pressure Systolic: 123 0: 56 Pulse Rate: 72 Respiratory Rate: 20 Temperature (Fahrenheit): 97.6 O2 Sat by Pulse Oximetry: 98 Airway: patent Nausea: No Vomiting: No Pain Intensity: 3 Hydration Status: adequate Cardiopulmonary Status: stable Mental Status/LOC: patient returned to baseline Follow-up Care/Observations: n/a Post-Anesthesia Complications: none Follow-up care needed: N/A ADALBERTO THOMAS M.D. Jul 19, 2017 11:57
[2017-07-19 12:00] VITALS: BP 110/59
[2017-07-19] MEDS: PCA HYDROmorphone 1mg/ml 30 ML IV PRN (12:21)
[2017-07-19] MEDS ORDERED: ALPRAZolam 0.5mg tab ORAL PRN (14:00)
[2017-07-19 16:00] VITALS: BP 111/67
[2017-07-19] MEDS ORDERED: D5 1/2NS 1000ml IV ONE (16:20)
[2017-07-19 20:00] VITALS: BP 102/62
[2017-07-19] MEDS ORDERED: Zolpidem 5mg tab ORAL PRN (21:00)
--- NOTE | 2017-07-19 22:04 | General Progress Note ---
Assessment/Plan Problem List: (1) Abscesses of both axillae ICD Codes: L02.411 - Cutaneous abscess of right axilla; L02.412 - Cutaneous abscess of left axilla SNOMED: 89019883 (2) Hidradenitis suppurativa ICD Codes: L73.2 - Hidradenitis suppurativa SNOMED: 24427093 (3) HTN (hypertension) ICD Codes: I10 - Essential (primary) hypertension SNOMED: 94075884 (4) Depression ICD Codes: F32.9 - Major depressive disorder, single episode, unspecified SNOMED: 51019581 (5) Anxiety ICD Codes: F41.9 - Anxiety disorder, unspecified SNOMED: 29813794 (6) Migraine ICD Codes: G43.909 - Migraine, unspecified, not intractable, without status migrainosus SNOMED: 92612295 Status: stable Assessment/Plan Appreciate plastic surgery rec's s/p bilateral axillary debridement and flap elevation on 07/18/17 Cont empiric IV ancef F/u blood cultures Wound care per surgery Post operative recommendations include: - encourage mobilization/ambulation - encourage incentive spirometry to optimize pulmonary hygiene - DVT/GI prophylaxis as appropriate--SCDs, HSQ - ctm CBC and hemodynamics - ctm electrolytes, adjust/replete prn - pain control, supportive care, bowel regimen FULL CODE 31min of extra time was spent on this encounter in addition to normal encounter time for care/coordination and counseling. D/w patient/family, RN, SW/CM, surgery regarding mgmt and dispo. D/w surgery re postop mgmt. D/w pt re migraine control Subjective Date patient seen: Jul 19, 2017 Time patient seen: 15:00 Constitutional: Reports: no symptoms HEENT: Reports: no symptoms Cardiovascular: Reports: no symptoms Respiratory: Reports: no symptoms Gastrointestinal/Abdominal: Reports: no symptoms Genitourinary: Reports: no symptoms Neurologic/Psychiatric: Reports: headache Endocrine: Reports: no symptoms Hematologic/Lymphatic: Reports: no symptoms Allergies: Coded Allergies: LEVOFLOXACIN (Verified Allergy, Unknown, 07/17/17) Subjective No acute o/n events s/p bilateral axillary debridement and flap elevation POD#1 Pain controlled Drowsiness and blurred vision have resolved. Having headaches, feels like her usual migraines. Denies f/c, n/v, d/c, chest pain, SOB Objective Last 24 Hour Vital Signs Date Time Temp Pulse Resp B/P (MAP) Pulse Ox O2 Delivery O2 Flow Rate FiO2 07/19/17 21:32 63 102/62 07/19/17 20:00 98.4 63 18 102/62 98 Room Air 07/19/17 16:00 97.3 59 17 111/67 98 07/19/17 16:00 18 07/19/17 12:00 98.8 61 17 110/59 97 07/19/17 12:00 18 07/19/17 11:57 207.7 72 20 98 07/19/17 09:30 66 110/73 07/19/17 08:00 99.2 66 17 96/73 98 07/19/17 08:00 17 07/19/17 07:16 209.3 62 18 96 07/19/17 04:01 Room Air 07/19/17 04:00 98.5 62 18 105/57 96 07/19/17 04:00 18 07/19/17 00:01 Room Air 07/19/17 00:00 98.5 68 18 91/54 97 Intake and Output 07/18/17 07/19/17 19:00 07:00 Intake Total 1240 ml 240 ml Output Total 50 ml Balance 1190 ml 240 ml Intake Oral 240 ml 240 ml IV Total 1000 ml Output Estimated Blood Loss 50 ml # Voids 1 3 Height (Feet): 5 Height (Inches): 9.00 Weight (Pounds): 230 Objective General: alert, cooperative, no distress, appears stated age Head: normocephalic, without obvious abnormality, atraumatic Eyes: conjunctivae/corneas clear. PERRL, EOM's intact Throat: lips, mucosa, and tongue normal. MMM Neck: supple, symmetrical, trachea midline, and no JVD Lungs: clear to auscultation bilaterally Heart: regular rate and rhythm, S1, S2 normal, no murmur, click, rub or gallop Abdomen: soft, non-tender, non-distended, bowel sounds normal; no masses or organomegaly Extremities: extremities normal, atraumatic, no cyanosis or edema Pulses: 2+ and symmetric Skin: skin color, texture, turgor normal; dressings c/d/i Neurologic: grossly normal, no focal deficits WiJaciel gunderson M.D. Jul 19, 2017 22:04
[2017-07-20] VITALS (12 sets, daily range): BP systolic 92–143; BP diastolic 54–96
[2017-07-20] MEDS: ceFAZolin sod 1 GM in NS 55 ML IVPB SCH ×3 (01:34→17:38)
[2017-07-20] MEDS: PCA shift volume MISC SCH ×2 (07:00→19:27)
[2017-07-20 08:12] LABS: BASOPHILS % (AUTO) 0.6 % (0.0-2.0); EOSINOPHILS % (AUTO) 1.5 % (0.0-3.0); HEMATOCRIT 30.8 % (37.0-47.0); HEMOGLOBIN 10.2 G/DL (12.0-16.0); MEAN CORPUSCULAR VOLUME 83 FL (80-99); MONOCYTES % (AUTO) 7.1 % (1.0-10.0); NEUTROPHILS % (AUTO) 68.8 % (45.0-75.0); PLATELET COUNT 225 K/UL (150-450); RED BLOOD COUNT 3.73 M/UL (4.20-5.40); RED CELL DISTRIBUTION WIDTH 14.3 % (11.6-14.8)
[2017-07-20 08:29] LABS: ANION GAP 2 mmol/L (5-15); BLOOD UREA NITROGEN 8 mg/dL (7-18); CALCIUM 8.1 MG/DL (8.5-10.1); CARBON DIOXIDE 29 MMOL/L (21-32); CHLORIDE 103 MMOL/L (98-107); CREATININE 0.9 MG/DL (0.55-1.30); POTASSIUM 4.4 MMOL/L (3.5-5.1); SODIUM 134 MMOL/L (136-145)
[2017-07-20] MEDS: Docusate 100mg cap ORAL SCH ×2 (09:00→20:13)
[2017-07-20] MEDS: Heparin 5000 units/ml inj SUBQ SCH ×2 (09:00→20:17)
[2017-07-20] MEDS: Metoprolol Tartrate 50mg tab ORAL SCH ×2 (09:00→20:17)
[2017-07-20] MEDS: BuPROPion XL 150mg tab ORAL SCH (09:00)
--- NOTE | 2017-07-20 09:35 | Pre-Procedure Note/Attestation ---
Pre-Procedure Note/Attestation Complete Prior to Procedure Planned Procedure: bilateral Procedure Narrative: Bilateral axillary wound closure Attestation I attest that I discussed the nature of the procedure; its benefits; risks and complications; and alternatives (and the risks and benefits of such alternatives ), prior to the procedure, with the patient (or the patient's legal bank representative). I attest that, if there was a reasonable possibility of needing a blood transfusion, the patient (or the patient's legal bank representative) was given the [facility] standardized written summary, pursuant to the [place] Blood Safety Act ([place] Health and Safety Code # 1645, as amended). I attest that I re-evaluated the patient just prior to the surgery and that there has been no change in the patient's H&P, except as documented below: BARB MASTERSON Jul 20, 2017 09:35
[2017-07-20] MEDS ORDERED: NeoSporin Gu Irrig 1ml Amp IRRIG ONE (09:38)
[2017-07-20] MEDS ORDERED: Lidocaine 1% 10mg/ml/EPI 0.01mg/ml 50ml INJ ONE (09:38)
[2017-07-20] MEDS ORDERED: Bacitracin 50000 Units Vial ONE (09:38)
[2017-07-20] MEDS ORDERED: Zolpidem 5mg tab ORAL PRN (09:45)
[2017-07-20] MEDS ORDERED: Propofol 200mg/20ml IV ONE (09:53)
[2017-07-20] MEDS ORDERED: Midazolam 2mg/2ml Inj ONE (10:30)
[2017-07-20] MEDS ORDERED: Lidocaine 1% MPF 10mg/ml 5ml ONE (10:30)
[2017-07-20] MEDS ORDERED: Zemuron 50mg/5ml Inj IV ONE (10:30)
[2017-07-20] MEDS ORDERED: fentaNYL 100 mcg/2 mL IV ONE (10:30)
[2017-07-20] MEDS ORDERED: NS Irrig 1000ml ONE (10:30)
[2017-07-20] MEDS ORDERED: Sterile Water Irrig 1000ml IRRIG ONE (10:30)
[2017-07-20] MEDS ORDERED: Glycopyrrolate 0.2mg/ml 1ml Vial ONE (10:30)
[2017-07-20] MEDS ORDERED: Neostigmine 1mg/ml 10ml Inj ONE (10:30)
[2017-07-20] MEDS ORDERED: LR 1000ml ONE (10:30)
--- NOTE | 2017-07-20 11:18 | 48 Hour Post Anesthesia Eval ---
Post Anesthesia Evaluation Procedure: Closure of bilateral axillary wounds Date of Evaluation: Jul 20, 2017 Time of Evaluation: 14:43 Blood Pressure Systolic: 122 0: 59 Pulse Rate: 71 Respiratory Rate: 18 Temperature (Fahrenheit): 98.6 O2 Sat by Pulse Oximetry: 99 Airway: patent Nausea: No Vomiting: No Pain Intensity: 2 Hydration Status: adequate Cardiopulmonary Status: Stable Mental Status/LOC: patient returned to baseline Follow-up Care/Observations: 0 Post-Anesthesia Complications: 0 Follow-up care needed: N/A Cole Ortega MD Jul 20, 2017 11:18
--- NOTE | 2017-07-20 11:18 | Immediate Post-Op Evaluation ---
Immediate Post-Op Evalulation Immediate Post-Op Evalulation Procedure: Closure of bilateral axillary wounds Date of Evaluation: Jul 20, 2017 Time of Evaluation: 12:30 IV Fluids: 900 LR Blood Products: 0 Estimated Blood Loss: 25 Urinary Output: 0 Blood Pressure Systolic: 137 Blood Pressure Diastolic: 71 Pulse Rate: 77 Respiratory Rate: 16 O2 Sat by Pulse Oximetry: 99 Temperature (Fahrenheit): 98.4 Pain Score (1-10): 2 Nausea: No Vomiting: No Complications 0 Patient Status: awake, reacts Dru Grams Ancef IV Given Within 1 Hr of Incision: Yes Time Given: 10:46 Cole Ortega MD Jul 20, 2017 11:17
[2017-07-20] MEDS: D5 1/2NS 1,000 ML IV SCH (11:20)
[2017-07-20] MEDS ORDERED: NS Irrig 1000ml IRRIG ONE (11:38)
[2017-07-20] MEDS ORDERED: Rate Change PCA 1 Each MISC PRN (12:00)
[2017-07-20] MEDS ORDERED: Naloxone 0.4mg/ml Inj IV PRN (12:00)
--- NOTE | 2017-07-20 12:07 | Operative Note - PDOC ---
Operative Note Operative Note Procedure: Bilateral axillary wound closure Surgeon: Tavares Carton Repairer: Dulce Anesthesia: general Specimen: yes Complications: none Condition: stable Estimated Blood Loss: minimal Drains: CORETTA Implant(s) used?: No BARB MASTERSON Jul 20, 2017 12:07
[2017-07-20] MEDS ORDERED: Hydromorphone 0.5mg/0.5ml inj ONE (12:48)
[2017-07-20] MEDS ORDERED: LR 1000ml 1,000 ML IVLG SCH (12:55)
[2017-07-20] MEDS ORDERED: Labetalol 5mg/ml 20ml vial IV PRN (13:00)
[2017-07-20] MEDS ORDERED: DiphenhydrAMINE 50mg/ml Inj IVP PRN (13:00)
[2017-07-20] MEDS ORDERED: oxyCODONE HCL/Acetaminophen 5/325mg ORAL PRN (13:00)
[2017-07-20] MEDS ORDERED: HYDROcodone/Acetamin 7.5/325 tab ORAL PRN (13:00)
[2017-07-20] MEDS ORDERED: Hydromorphone 0.5mg/0.5ml inj IVP PRN (13:00)
[2017-07-20] MEDS ORDERED: Midazolam 2mg/2ml Inj IVP PRN (13:00)
[2017-07-20] MEDS ORDERED: LORazepam Inj 2mg/ml 1ml IV PRN (13:00)
[2017-07-20] MEDS ORDERED: Norco 5mg/325mg tab ORAL PRN (13:00)
[2017-07-20] MEDS ORDERED: Ketorolac 30mg Inj IV PRN ×2 (13:00)
[2017-07-20] MEDS ORDERED: Atropine Inj 1mg/10ml Syr IV PRN (13:00)
[2017-07-20] MEDS ORDERED: fentaNYL 100 mcg/2 mL IV PRN (13:00)
[2017-07-20] MEDS ORDERED: Ketorolac 60mg Inj ONE (13:02)
[2017-07-20] MEDS ORDERED: Ketorolac 60mg Inj IV ONE (13:05)
[2017-07-20] MEDS: PCA HYDROmorphone 1mg/ml 30 ML IV PRN (13:19)
[2017-07-20] MEDS ORDERED: PCA Education Pamphlet MISC ONE (14:00)
--- NOTE | 2017-07-20 14:47 | Cardiology Report ---
APPROVED REPORT EKG Measurement Heart [id number] 170P7 [id number] Normal sinus rhythm Nonspecific T wave abnormality Abnormal ECG
--- NOTE | 2017-07-20 15:38 | General Progress Note ---
Assessment/Plan Problem List: (1) Abscesses of both axillae ICD Codes: L02.411 - Cutaneous abscess of right axilla; L02.412 - Cutaneous abscess of left axilla SNOMED: 01109470 (2) Hidradenitis suppurativa ICD Codes: L73.2 - Hidradenitis suppurativa SNOMED: 02239565 (3) HTN (hypertension) ICD Codes: I10 - Essential (primary) hypertension SNOMED: 91125527 (4) Depression ICD Codes: F32.9 - Major depressive disorder, single episode, unspecified SNOMED: 38412687 (5) Anxiety ICD Codes: F41.9 - Anxiety disorder, unspecified SNOMED: 55899896 (6) Migraine ICD Codes: G43.909 - Migraine, unspecified, not intractable, without status migrainosus SNOMED: 68851653 Status: stable Assessment/Plan Appreciate plastic surgery rec's s/p bilateral axillary debridement and flap elevation on 07/18/17 s/p bilateral axillary wound closure on 07/20/17 Cont empiric IV ancef F/u blood cultures Wound care per surgery Post operative recommendations include: - encourage mobilization/ambulation - encourage incentive spirometry to optimize pulmonary hygiene - DVT/GI prophylaxis as appropriate--SCDs, HSQ - ctm CBC and hemodynamics - ctm electrolytes, adjust/replete prn - pain control, supportive care, bowel regimen FULL CODE 32min of extra time was spent on this encounter in addition to normal encounter time for care/coordination and counseling. D/w patient/family, RN, SW/CM, surgery regarding mgmt and dispo. D/w surgery re postop mgmt. D/w pt re migraine control Subjective Date patient seen: Jul 20, 2017 Time patient seen: 15:20 ROS Limited/Unobtainable: No Constitutional: Reports: no symptoms HEENT: Reports: no symptoms Cardiovascular: Reports: no symptoms Respiratory: Reports: no symptoms Gastrointestinal/Abdominal: Reports: nausea Genitourinary: Reports: no symptoms Neurologic/Psychiatric: Reports: headache Endocrine: Reports: no symptoms Hematologic/Lymphatic: Reports: no symptoms Allergies: Coded Allergies: LEVOFLOXACIN (Verified Allergy, Unknown, 07/17/17) Subjective No acute o/n events s/p bilateral axillary debridement and flap elevation POD#2 s/p bilateral axillary wound closure POD#0 Pain controlled Drowsiness and blurred vision have resolved. Having headaches, feels like her usual migraines. Denies f/c, n/v, d/c, chest pain, SOB Objective Last 24 Hour Vital Signs Date Time Temp Pulse Resp B/P (MAP) Pulse Ox O2 Delivery O2 Flow Rate FiO2 07/20/17 14:06 98.4 07/20/17 14:05 20 07/20/17 14:05 98.4 07/20/17 13:50 98.0 67 20 128/61 100 Nasal Cannula 3.0 07/20/17 13:50 20 07/20/17 13:35 20 07/20/17 13:35 67 20 127/56 100 Nasal Cannula 3.0 07/20/17 13:19 20 07/20/17 13:19 98.4 07/20/17 13:19 61 20 140/63 100 Nasal Cannula 3.0 07/20/17 13:04 98.4 07/20/17 13:04 61 20 142/61 100 Nasal Cannula 3.0 07/20/17 12:48 98.4 07/20/17 12:48 67 20 135/63 100 Nasal Cannula 3.0 07/20/17 12:29 65 20 135/63 100 Nasal Cannula 3.0 07/20/17 12:24 66 20 129/66 100 Simple Mask 8.0 07/20/17 12:19 98.4 66 20 129/66 100 Simple Mask 8.0 07/20/17 12:19 209.5 71 18 99 07/20/17 12:18 209.1 77 16 99 07/20/17 09:00 70 93/59 07/20/17 08:00 16 07/20/17 08:00 98.9 70 16 93/59 97 07/20/17 04:00 19 07/20/17 04:00 98.7 77 16 118/65 97 Room Air 07/20/17 00:00 19 07/19/17 21:32 63 102/62 07/19/17 20:00 18 07/19/17 20:00 98.4 63 18 102/62 98 Room Air 07/19/17 16:00 97.3 59 17 111/67 98 07/19/17 16:00 18 Intake and Output 07/19/17 07/20/17 19:00 07:00 Intake Total 1250 ml 880 ml Balance 1250 ml 880 ml Intake Oral 500 ml IV Total 750 ml 880 ml # Voids 1 1 Laboratory Tests 07/20/17 06:24: White Blood Count 7.0, Red Blood Count 3.73L, Hemoglobin 10.2L, Hematocrit 30.8L , Mean Corpuscular Volume 83, Mean Corpuscular Hemoglobin 27.3, Mean Corpuscular Hemoglobin Concent 33.1, Red Cell Distribution Width 14.3, Platelet Count 225, Mean Platelet Volume 5.7L, Neutrophils (%) (Auto) 68.8, Lymphocytes ( %) (Auto) 22.0, Monocytes (%) (Auto) 7.1, Eosinophils (%) (Auto) 1.5, Basophils (%) (Auto) 0.6, Sodium Level 134L, Potassium Level 4.4, Chloride Level 103, Carbon Dioxide Level 29, Anion Gap 2L, Blood Urea Nitrogen 8, Creatinine 0.9, Estimat Glomerular Filtration Rate > 60, Glucose Level 96, Calcium Level 8.1L, Magnesium Level 1.9 Height (Feet): 5 Height (Inches): 9.00 Weight (Pounds): 230 Objective General: alert, cooperative, no distress, appears stated age Head: normocephalic, without obvious abnormality, atraumatic Eyes: conjunctivae/corneas clear. PERRL, EOM's intact Throat: lips, mucosa, and tongue normal. MMM Neck: supple, symmetrical, trachea midline, and no JVD Lungs: clear to auscultation bilaterally Heart: regular rate and rhythm, S1, S2 normal, no murmur, click, rub or gallop Abdomen: soft, non-tender, non-distended, bowel sounds normal; no masses or organomegaly Extremities: extremities normal, atraumatic, no cyanosis or edema Pulses: 2+ and symmetric Skin: skin color, texture, turgor normal; dressings c/d/i Neurologic: grossly normal, no focal deficits Jaciel Winter M.D. Jul 20, 2017 15:38
[2017-07-20] MEDS ORDERED: Docusate 100mg cap ORAL SCH (18:00)
--- NOTE | 2017-07-20 19:30 | Operative Note - Dictated ---
DATE OF OPERATION: 07/20/2017 PREOPERATIVE DIAGNOSIS: Bilateral open axillary wounds. POSTOPERATIVE DIAGNOSIS: Bilateral open axillary wounds. PROCEDURES: 1. Preparation of left axillary wound for secondary closure. 2. Secondary closure of left axillary wound. 3. Preparation of right axillary wound for flap closure. 4. Readvancement of thoracodorsal artery flap and re-inset to close right axillary wound. SURGEON: Marsha Chapin M.D. TOPSTITCHER LOCKSTITCH: Des Cardona M.D. ANESTHESIA: General. COMPLICATIONS: None. DRAINS: Included a CROETTA in each axilla. DISPOSITION: Stable to the recovery room. INDICATIONS FOR SURGERY: This is a 37-year-old female who has a history of hidradenitis suppurativa who is status post radical excision of her diseased tissue 48 hours ago who has undergone local wound care over the past two days and is now prepared to undergo definitive closure of her wounds. She understands the risks and benefits of surgery and agreed to proceed. Consent was signed and in the chart. DETAILS OF THE OPERATION: The patient was brought to the operating room and laid in supine position on the operating table. Her bilateral axillary wounds were prepped and draped in a sterile and usual fashion. On the left axilla, we had previously raised skin flaps to allow for a tension-free closure of the wound. As such, once the wound was copiously irrigated with pulse lavage and some of the nonviable tissue was mechanically debrided. The wound was then reapproximated with a secondary wound closure using #0 and 2-0 Vicryl sutures and the skin arg[place] were used to close the skin. Once this secondary wound closure was completed, we then turned our attention to the contralateral right axillary wound. This wound was quite large and measured approximately 15 x 15 centimeters and has had been previously done an anterior chest wall flap had been adequately mobilized and elevated and we decided to re-inset the thoracodorsal artery flap that had been previously elevated to the close the wound. Again, this flap that had been previously elevated was based off of perforators of the thoracodorsal artery with dimension of approximately 15 x 8 cm and along with the anterior chest wall flap that had been previously elevated could adequately close the right axillary wound. Prior to definitive flap transfer into the axillary defect, the wound was copiously irrigated with pulse lavage. Hemostasis was achieved. For the donor site, we raised the posterior skin tissue over the posterior chest wall to allow for closure of the thoracodorsal artery flap donor site. A CORETTA drain had been placed on the left axilla and it was also placed in the right axilla and we began first by closing the donor site using #0 and 2-0 Vicryl sutures and the flap was then inset into the axillary defect using #0 and 2-0 Vicryl sutures and a combination of argentina and 2-0 Prolene sutures were used to close the skin. The patient tolerated the procedure well and there was no complications. Marsha Chapin M.D. DR: DARWIN JOB#: [id number] CC: MABLE
[2017-07-20] MEDS ORDERED: Heparin 5000 units/ml inj SUBQ SCH (21:00)
[2017-07-20] MEDS ORDERED: SUMAtriptan 6mg/0.5ml Inj SUBQ ONE (23:15)
[2017-07-21] VITALS (7 sets, daily range): BP systolic 91–101; BP diastolic 38–68
[2017-07-21] MEDS: ceFAZolin sod 1 GM in NS 55 ML IVPB SCH ×3 (02:19→18:19)
[2017-07-21] MEDS: PCA shift volume MISC SCH ×2 (07:18→19:00)
[2017-07-21] MEDS: Metoprolol Tartrate 50mg tab ORAL SCH ×2 (09:00→21:00)
[2017-07-21] MEDS: Docusate 100mg cap ORAL SCH ×2 (09:03→22:08)
[2017-07-21] MEDS: BuPROPion XL 150mg tab ORAL SCH (09:04)
[2017-07-21] MEDS: Heparin 5000 units/ml inj SUBQ SCH ×2 (09:12→22:12)
--- NOTE | 2017-07-21 10:40 | General Progress Note ---
Progress Note Progress Note Pt seen and examined. POD# 2 and doing well. Dressings to be changed and can shower. To OR on Sunday for closure BARB MASTERSON Jul 21, 2017 10:39
--- NOTE | 2017-07-21 10:45 | General Progress Note ---
Progress Note Progress Note Pt seen and examined. This is a correction to the other note from today POD# 1 from closure of wounds. Doing well. Pain well controlled. Has migraines though for which she is taking meds from home. Will take down dressings on Sunday. Barb Masterson M.D.. BARB MASTERSON Jul 21, 2017 10:45
[2017-07-21] MEDS: PCA HYDROmorphone 1mg/ml 30 ML IV PRN (13:00)
--- NOTE | 2017-07-21 15:37 | General Progress Note ---
Assessment/Plan Problem List: (1) Abscesses of both axillae ICD Codes: L02.411 - Cutaneous abscess of right axilla; L02.412 - Cutaneous abscess of left axilla SNOMED: 91591076 (2) Hidradenitis suppurativa ICD Codes: L73.2 - Hidradenitis suppurativa SNOMED: 22369675 (3) HTN (hypertension) ICD Codes: I10 - Essential (primary) hypertension SNOMED: 11794009 (4) Depression ICD Codes: F32.9 - Major depressive disorder, single episode, unspecified SNOMED: 86555405 (5) Anxiety ICD Codes: F41.9 - Anxiety disorder, unspecified SNOMED: 66449501 (6) Migraine ICD Codes: G43.909 - Migraine, unspecified, not intractable, without status migrainosus SNOMED: 55438863 Status: stable Assessment/Plan Appreciate plastic surgery rec's s/p bilateral axillary debridement and flap elevation on 07/18/17 s/p bilateral axillary wound closure on 07/20/17 Cont empiric IV ancef F/u blood cultures--ngtd Wound care per surgery Post operative recommendations include: - encourage mobilization/ambulation - encourage incentive spirometry to optimize pulmonary hygiene - DVT/GI prophylaxis as appropriate--SCDs, HSQ - ctm CBC and hemodynamics - ctm electrolytes, adjust/replete prn - pain control, supportive care, bowel regimen FULL CODE 31min of extra time was spent on this encounter in addition to normal encounter time for care/coordination and counseling. D/w patient/family, RN, SW/CM, surgery regarding mgmt and dispo. D/w surgery re postop mgmt. D/w pt re migraine control Subjective Date patient seen: Jul 21, 2017 Time patient seen: 15:37 ROS Limited/Unobtainable: No Constitutional: Reports: no symptoms HEENT: Reports: no symptoms Cardiovascular: Reports: no symptoms Respiratory: Reports: no symptoms Gastrointestinal/Abdominal: Reports: no symptoms Genitourinary: Reports: no symptoms Neurologic/Psychiatric: Reports: headache Endocrine: Reports: no symptoms Hematologic/Lymphatic: Reports: no symptoms Allergies: Coded Allergies: LEVOFLOXACIN (Verified Allergy, Unknown, 07/17/17) Subjective No acute o/n events s/p bilateral axillary debridement and flap elevation POD#3 s/p bilateral axillary wound closure POD#1 Pain controlled Having headaches, feels like her usual migraines. Denies f/c, n/v, d/c, chest pain, SOB Objective Last 24 Hour Vital Signs Date Time Temp Pulse Resp B/P (MAP) Pulse Ox O2 Delivery O2 Flow Rate FiO2 07/21/17 12:00 18 07/21/17 12:00 97.8 70 18 101/68 97 07/21/17 09:00 74 101/61 07/21/17 08:00 97.2 72 18 101/61 97 07/21/17 08:00 18 07/21/17 04:44 98.1 67 18 93/38 95 07/21/17 04:00 18 07/21/17 00:43 99.7 79 18 95/54 93 07/21/17 00:00 17 07/20/17 20:39 98.0 62 17 92/54 97 07/20/17 20:17 62 92/54 07/20/17 20:00 18 07/20/17 16:00 18 07/20/17 16:00 98.1 94 19 143/96 97 Intake and Output 07/20/17 07/21/17 19:00 07:00 Intake Total 1400 ml Output Total 65 ml 30 ml Balance 1335 ml -30 ml IV Total 1400 ml Output Drainage Total 40 ml 30 ml Estimated Blood Loss 25 ml # Voids 2 1 Height (Feet): 5 Height (Inches): 9.00 Weight (Pounds): 230 Objective General: alert, cooperative, no distress, appears stated age Head: normocephalic, without obvious abnormality, atraumatic Eyes: conjunctivae/corneas clear. PERRL, EOM's intact Throat: lips, mucosa, and tongue normal. MMM Neck: supple, symmetrical, trachea midline, and no JVD Lungs: clear to auscultation bilaterally Heart: regular rate and rhythm, S1, S2 normal, no murmur, click, rub or gallop Abdomen: soft, non-tender, non-distended, bowel sounds normal; no masses or organomegaly Extremities: extremities normal, atraumatic, no cyanosis or edema Pulses: 2+ and symmetric Skin: skin color, texture, turgor normal; dressings c/d/i Neurologic: grossly normal, no focal deficits Jaciel Winter M.D.b 17, 2018 15:37
[2017-07-21] MEDS ORDERED: SUMAtriptan 6mg/0.5ml Inj SUBQ PRN (16:00)
[2017-07-21] MEDS: Miralax 17gm pkt ORAL SCH (16:14)
[2017-07-22 00:49] VITALS: BP 119/63
[2017-07-22] MEDS: ceFAZolin sod 1 GM in NS 55 ML IVPB SCH ×3 (01:36→17:27)
[2017-07-22 04:00] VITALS: BP 115/70
[2017-07-22] MEDS: PCA shift volume MISC SCH ×2 (07:00→19:01)
[2017-07-22 08:44] VITALS: BP 113/70
[2017-07-22] MEDS: Docusate 100mg cap ORAL SCH ×2 (08:44→20:25)
[2017-07-22] MEDS: Metoprolol Tartrate 50mg tab ORAL SCH ×2 (08:45→20:31)
[2017-07-22] MEDS: Miralax 17gm pkt ORAL SCH (08:45)
[2017-07-22] MEDS: BuPROPion XL 150mg tab ORAL SCH (08:46)
[2017-07-22] MEDS: Heparin 5000 units/ml inj SUBQ SCH ×2 (08:56→20:31)
[2017-07-22] MEDS ORDERED: Rate Change PCA 1 Each MISC PRN (10:00)
[2017-07-22] MEDS ORDERED: PCA HYDROmorphone 1mg/ml 30 ML IV PRN (10:03)
[2017-07-22] MEDS ORDERED: D5 1/2NS 1000ml IV ONE (10:12)
[2017-07-22 12:22] VITALS: BP 121/69
[2017-07-22 16:25] VITALS: BP 113/67
[2017-07-22 20:00] VITALS: BP 99/62
--- NOTE | 2017-07-22 20:50 | General Progress Note ---
Assessment/Plan Problem List: (1) Abscesses of both axillae ICD Codes: L02.411 - Cutaneous abscess of right axilla; L02.412 - Cutaneous abscess of left axilla SNOMED: 97282410 (2) Acute blood loss anemia ICD Codes: D62 - Acute posthemorrhagic anemia SNOMED: 571703363 (3) Hyponatremia ICD Codes: E87.1 - Hypo-osmolality and hyponatremia SNOMED: 76977268 (4) Hidradenitis suppurativa ICD Codes: L73.2 - Hidradenitis suppurativa SNOMED: 83648774 (5) HTN (hypertension) ICD Codes: I10 - Essential (primary) hypertension SNOMED: 13841894 (6) Depression ICD Codes: F32.9 - Major depressive disorder, single episode, unspecified SNOMED: 36879716 (7) Anxiety ICD Codes: F41.9 - Anxiety disorder, unspecified SNOMED: 15698150 (8) Migraine ICD Codes: G43.909 - Migraine, unspecified, not intractable, without status migrainosus SNOMED: 56318957 Status: stable Assessment/Plan Appreciate plastic surgery rec's s/p bilateral axillary debridement and flap elevation on 07/18/17 s/p bilateral axillary wound closure on 07/20/17 Cont empiric IV ancef F/u blood cultures--ngtd Wound care per surgery Post operative recommendations include: - encourage mobilization/ambulation - encourage incentive spirometry to optimize pulmonary hygiene - DVT/GI prophylaxis as appropriate--SCDs, HSQ - ctm CBC and hemodynamics - ctm electrolytes, adjust/replete prn - pain control, supportive care, bowel regimen FULL CODE 31min of extra time was spent on this encounter in addition to normal encounter time for care/coordination and counseling. D/w patient/family, RN, SW/CM, surgery regarding mgmt and dispo. D/w surgery re postop mgmt. D/w pt re migraine control Subjective Date patient seen: Jul 22, 2017 Time patient seen: 13:50 ROS Limited/Unobtainable: No Constitutional: Reports: no symptoms HEENT: Reports: no symptoms Cardiovascular: Reports: no symptoms Respiratory: Reports: no symptoms Gastrointestinal/Abdominal: Reports: no symptoms Genitourinary: Reports: no symptoms Neurologic/Psychiatric: Reports: headache Endocrine: Reports: no symptoms Hematologic/Lymphatic: Reports: no symptoms Allergies: Coded Allergies: LEVOFLOXACIN (Verified Allergy, Unknown, 07/17/17) Subjective No acute o/n events s/p bilateral axillary debridement and flap elevation POD#4 s/p bilateral axillary wound closure POD#2 Pain controlled Having headaches, feels like her usual migraines. Denies f/c, n/v, d/c, chest pain, SOB Objective Last 24 Hour Vital Signs Date Time Temp Pulse Resp B/P (MAP) Pulse Ox O2 Delivery O2 Flow Rate FiO2 07/22/17 20:31 74 99/62 18 20:00 97.7 74 19 99/62 96 Room Air 07/22/17 20:00 19 07/22/17 16:49 19 07/22/17 16:25 98.2 67 20 113/67 99 Room Air 07/22/17 12:45 19 07/22/17 12:22 97.8 80 21 121/69 96 Room Air 07/22/17 08:45 80 113/70 07/22/17 08:44 97.8 80 21 113/70 97 07/22/17 08:00 19 18 04:00 19 07/22/17 04:00 97.5 80 19 115/70 94 07/22/17 00:49 97.6 75 18 119/63 93 07/22/17 00:00 17 07/21/17 21:00 76 100/55 18 21:00 76 100/55 Intake and Output 18 07/22/17 19:00 07:00 Intake Total 600 ml 1360 ml Output Total 36 ml 20 ml Balance 564 ml 1340 ml Intake Oral 600 ml 480 ml IV Total 880 ml Output Drainage Total 36 ml 20 ml # Voids 2 2 Height (Feet): 5 Height (Inches): 9.00 Weight (Pounds): 230 Objective General: alert, cooperative, no distress, appears stated age Head: normocephalic, without obvious abnormality, atraumatic Eyes: conjunctivae/corneas clear. PERRL, EOM's intact Throat: lips, mucosa, and tongue normal. MMM Neck: supple, symmetrical, trachea midline, and no JVD Lungs: clear to auscultation bilaterally Heart: regular rate and rhythm, S1, S2 normal, no murmur, click, rub or gallop Abdomen: soft, non-tender, non-distended, bowel sounds normal; no masses or organomegaly Extremities: extremities normal, atraumatic, no cyanosis or edema Pulses: 2+ and symmetric Skin: skin color, texture, turgor normal; dressings c/d/i Neurologic: grossly normal, no focal deficits Jaciel Winter M.D. Jul 22, 2017 20:50
[2017-07-23] VITALS: BP 107/65
[2017-07-23] MEDS: ceFAZolin sod 1 GM in NS 55 ML IVPB SCH ×3 (01:50→17:15)
[2017-07-23 04:00] VITALS: BP 112/67
[2017-07-23] MEDS: PCA shift volume MISC SCH (07:00)
[2017-07-23 08:15] VITALS: BP 134/73
[2017-07-23] MEDS: BuPROPion XL 150mg tab ORAL SCH (08:31)
[2017-07-23] MEDS: Miralax 17gm pkt ORAL SCH (08:32)
[2017-07-23] MEDS: Metoprolol Tartrate 50mg tab ORAL SCH ×2 (08:32→20:56)
[2017-07-23] MEDS: Docusate 100mg cap ORAL SCH ×2 (08:32→20:52)
[2017-07-23] MEDS: Heparin 5000 units/ml inj SUBQ SCH ×2 (08:34→20:58)
[2017-07-23] MEDS ORDERED: Lactulose 20gm/30ml UDC ORAL ONE (09:00)
[2017-07-23 12:13] VITALS: BP 141/78
[2017-07-23] MEDS ORDERED: KEFLEX500 MG ORAL (12:18)
[2017-07-23] MEDS ORDERED: FIORICET1 EA ORAL (12:19)
[2017-07-23] MEDS ORDERED: MIRALAX17 G2 ORAL (12:20)
[2017-07-23] MEDS ORDERED: Norco 5mg/325mg tab ORAL PRN (15:15)
[2017-07-23] MEDS ORDERED: HYDROcodone/Acetamin 10/325 tab ORAL PRN (15:15)
[2017-07-23 16:00] VITALS: BP 158/86
[2017-07-23] MEDS: HYDROcodone/Acetamin 10/325 tab ORAL PRN ×2 (17:15→21:20)
[2017-07-23 20:00] VITALS: BP 138/82
--- NOTE | 2017-07-23 22:13 | General Progress Note ---
Assessment/Plan Problem List: (1) Abscesses of both axillae ICD Codes: L02.411 - Cutaneous abscess of right axilla; L02.412 - Cutaneous abscess of left axilla SNOMED: 11423652 (2) Acute blood loss anemia ICD Codes: D62 - Acute posthemorrhagic anemia SNOMED: 200931350 (3) Hyponatremia ICD Codes: E87.1 - Hypo-osmolality and hyponatremia SNOMED: 43433540 (4) Hidradenitis suppurativa ICD Codes: L73.2 - Hidradenitis suppurativa SNOMED: 41565003 (5) HTN (hypertension) ICD Codes: I10 - Essential (primary) hypertension SNOMED: 57601479 (6) Depression ICD Codes: F32.9 - Major depressive disorder, single episode, unspecified SNOMED: 89118160 (7) Anxiety ICD Codes: F41.9 - Anxiety disorder, unspecified SNOMED: 14479273 (8) Migraine ICD Codes: G43.909 - Migraine, unspecified, not intractable, without status migrainosus SNOMED: 59164496 Status: stable Assessment/Plan Appreciate plastic surgery rec's s/p bilateral axillary debridement and flap elevation on 07/18/17 s/p bilateral axillary wound closure on 07/20/17 Cont CORETTA drains per surgery Cont empiric IV ancef F/u blood cultures--ngtd Wound care per surgery Post operative recommendations include: - encourage mobilization/ambulation - encourage incentive spirometry to optimize pulmonary hygiene - DVT/GI prophylaxis as appropriate--SCDs, HSQ - ctm CBC and hemodynamics - ctm electrolytes, adjust/replete prn - pain control, supportive care, bowel regimen DC planning, likely home tomorrow per surgery FULL CODE 31min of extra time was spent on this encounter in addition to normal encounter time for care/coordination and counseling. D/w patient/family, RN, SW/CM, surgery regarding mgmt and dispo. D/w surgery re discharge planning Subjective Date patient seen: Jul 23, 2017 Time patient seen: 13:00 ROS Limited/Unobtainable: No Constitutional: Reports: no symptoms HEENT: Reports: no symptoms Cardiovascular: Reports: no symptoms Respiratory: Reports: no symptoms Gastrointestinal/Abdominal: Reports: no symptoms Genitourinary: Reports: no symptoms Neurologic/Psychiatric: Reports: headache Endocrine: Reports: no symptoms Hematologic/Lymphatic: Reports: no symptoms Allergies: Coded Allergies: LEVOFLOXACIN (Verified Allergy, Unknown, 07/17/17) Subjective No acute o/n events s/p bilateral axillary debridement and flap elevation POD#5 s/p bilateral axillary wound closure POD#3 Pain controlled Headaches improving. Denies f/c, n/v, d/c, chest pain, SOB Objective Last 24 Hour Vital Signs Date Time Temp Pulse Resp B/P (MAP) Pulse Ox O2 Delivery O2 Flow Rate FiO2 07/23/17 20:56 63 125/80 07/23/17 20:00 98.1 88 20 138/82 99 Room Air 07/23/17 18:31 98.0 07/23/17 17:15 98.0 07/23/17 16:00 98.3 73 20 158/86 98 Room Air 07/23/17 15:07 98.0 07/23/17 12:45 18 07/23/17 12:13 98.0 59 18 141/78 100 Room Air 07/23/17 08:32 81 134/73 07/23/17 08:16 16 07/23/17 08:15 97.5 81 18 134/73 100 Room Air 07/23/17 04:00 18 07/23/17 04:00 97.8 77 18 112/67 95 Room Air 07/23/17 00:00 97.4 72 20 107/65 96 Room Air 07/23/17 00:00 18 Intake and Output 07/22/17 07/23/17 19:00 07:00 Intake Total 960 ml Balance 960 ml Intake Oral 300 ml IV Total 660 ml # Voids 2 3 # Bowel Movements 1 Height (Feet): 5 Height (Inches): 9.00 Weight (Pounds): 230 Objective General: alert, cooperative, no distress, appears stated age Head: normocephalic, without obvious abnormality, atraumatic Eyes: conjunctivae/corneas clear. PERRL, EOM's intact Throat: lips, mucosa, and tongue normal. MMM Neck: supple, symmetrical, trachea midline, and no JVD Lungs: clear to auscultation bilaterally Heart: regular rate and rhythm, S1, S2 normal, no murmur, click, rub or gallop Abdomen: soft, non-tender, non-distended, bowel sounds normal; no masses or organomegaly Extremities: extremities normal, atraumatic, no cyanosis or edema Pulses: 2+ and symmetric Skin: skin color, texture, turgor normal; dressings c/d/i Neurologic: grossly normal, no focal deficits Jaciel Winter M.D. Jul 23, 2017 22:13
[2017-07-24] MEDS: ceFAZolin sod 1 GM in NS 55 ML IVPB SCH ×2 (01:11→10:23)
[2017-07-24 01:23] VITALS: BP 105/63
[2017-07-24] MEDS: HYDROcodone/Acetamin 10/325 tab ORAL PRN ×2 (01:28→06:08)
[2017-07-24 03:59] VITALS: BP 105/62
[2017-07-24 08:30] VITALS: BP 127/87
[2017-07-24] MEDS: BuPROPion XL 150mg tab ORAL SCH (09:00)
[2017-07-24] MEDS ORDERED: Naloxone 0.4mg/ml Inj IV PRN (09:45)
[2017-07-24] MEDS: Metoprolol Tartrate 50mg tab ORAL SCH (10:20)
[2017-07-24] MEDS: Miralax 17gm pkt ORAL SCH (10:20)
[2017-07-24] MEDS: Docusate 100mg cap ORAL SCH (10:20)
[2017-07-24] MEDS: Heparin 5000 units/ml inj SUBQ SCH (10:36)
[2017-07-24 11:00] VITALS: BP 118/84
--- NOTE | 2017-07-24 17:16 | Discharge Summary ---
Discharge Summary Hospital Course Date of Admission Jul 17, 2017 at 12:07 Date of Discharge Jul 24, 2017 at 11:50 Admitting Diagnosis abscess Reason for Hospitalization: abscess HPI 37y/o female with pmh of hidradenitis suppurative, HTN, depression, anxiety who presents with b/l axillary swelling/pain/redness/drainage. Pt states worsening symptoms for the past few weeks. She notes purulent drainage L>R axilla. C/o subjective fevers/chills. Denies n/v, d/c, chest pain, SOB, abd pain. Pt states has tried PO antibiotics with much improvement. At baseline pt able to ambulate severe blocks and climb at least a flight of stairs w/o symptoms. Consultations Plastic surgery - Dr. Chapin Procedures Bilateral axillary debridement and flap elevation on 07/18/17 Bilateral axillary wound closure on 07/20/17 Hospital Course Pt was admitted and placed on IV antibiotics. She was seen by surgery. She underwent bilateral axillary debridement and flap elevation on 07/18/17 and then bilateral axillary wound closure on 07/20/17. Pt tolerated procedure well. Hospital course complicated by persistent headaches likely migraines. Medications adjusted w/ improvement. Once pain controlled and wounds stable per surgery, she was discharged home with oral antibiotics and oral pain meds. Discharge Medications New Medications: Acetamin/Butalbital/Caffeine* (Fioricet*) 1 Ea Tab 1 TAB ORAL Q6H PRN for 30 Days, #30 TAB 0 Refills headaches Cephalexin* (Keflex*) 500 Mg Capsule 500 MG ORAL EVERY 6 HOURS for 7 Days, #28 CAP 0 Refills Polyethylene Glycol 3350* (Miralax*) 17 Gm Powd.pack 17 GM ORAL DAILY PRN for 30 Days, #30 PACKET constipation Continued Medications: Alprazolam* (Xanax*) 0.25 Mg Tablet 0.25 MG ORAL THREE TIMES A DAY, #30 TAB 0 Refills Alprazolam* (Xanax*) 0.5 Mg Tablet 0.5 MG ORAL TID PRN for PRN Agitation/Anxiety, #30 TAB 0 Refills Bupropion Xl* (Bupropion Xl*) 150 Mg Tab.er.24h 300 MG ORAL Q24H, TAB 0 Refills Famotidine (Pepcid Ac) 10 Mg Tablet 10 MG PO, TAB Fluoxetine Hcl* (Fluoxetine Hcl*) 20 Mg Capsule 20 MG ORAL DAILY, CAP Metoprolol Tartrate* (Metoprolol Tartrate*) 50 Mg Tablet 50 MG ORAL EVERY 12 HOURS, TAB Risperidone* (Risperdal*) 0.5 Mg Tablet 0.5 MG ORAL BID, #30 TAB 0 Refills Zolpidem Tartrate* (Zolpidem Tartrate*) 10 Mg Tablet 10 MG ORAL BEDTIME PRN for Insomnia, TAB 0 Refills Discontinued Medications: Prednisone* (Prednisone*) 20 Mg Tablet 20 MG ORAL DAILY, TAB 0 Refills Discharge Condition Upon Discharge: stable Discharge Disposition Patient was discharged to Home (01) Discharge Diagnoses: (1) Abscesses of both axillae (2) Hidradenitis suppurativa (3) HTN (hypertension) (4) Depression (5) Migraine (6) Acute blood loss anemia (7) Hyponatremia Jaciel Winter M.D. Jul 24, 2017 17:16
== END 2017-07-24 11:50 | disposition home or self-care (01) | DRG 580 ==
LOC: EDBEDREQ 11:54 → EMR 12:00 → 3E 12:07 → EDBEDREQ 12:15 → 3E 13:30
DX: L73.2 Hidradenitis suppurativa (principal); E87.1 Hypo-osmolality and hyponatremia; I10 Essential (primary) hypertension; D62 Acute posthemorrhagic anemia; F41.9 Anxiety disorder, unspecified; L02.412 Cutaneous abscess of left axilla; L02.411 Cutaneous abscess of right axilla; G43.909 Migraine, unspecified, not intractable, without status migrainosus; F32.9 Major depressive disorder, single episode, unspecified
CPT/HCPCS: 36415; 80048; 80053; 81003; 81025; 82962; 83735; 85025; 85610; 85730; 87040; 93005; 94003; 94150; 99283; J2250; J2405; J2710